=== PATIENT | male | born 1985 | race Two or more races ===

== ENCOUNTER 2024-04-02 20:05 | Emergency (ER) | payer SELFPAY ==
[~2024-04-02] VITALS: Ht 180.3 cm; Wt 68.0 kg
[2024-04-02] MEDS ORDERED: PredniSONE 20 MG Tab PO ONE (20:10)
[2024-04-02] MEDS ORDERED: Ipratropium/Albuterol SulF 2.5-0.5MG/3 ML Amp INH ONE (20:10)
[2024-04-02] MEDS ORDERED: RX Prepack Albuterol 1 PREPACK/6.7 GM INH UD ONE (20:40)
[2024-04-02] MEDS ORDERED: Prednisone20 MG PO (20:40)
== END 2024-04-02 20:50 | disposition home or self-care (01) ==
LOC: ER 20:05
DX: J45.901 Unspecified asthma with (acute) exacerbation (principal)
CPT/HCPCS: 94640; 94664; 99284-25; A9270; J7512